=== PATIENT | male | born 1970 | race Hispanic/Latino ===

== ENCOUNTER 2019-01-21 12:14 | Emergency (ER) | payer OTHER ==
[2019-01-21 12:26] VITALS: TEMP 98
--- NOTE | 2019-01-21 12:35 | ED PDOC ---
HPI: SOB/CHF/COPD Time Seen by Provider: 01/21/19 12:27 Chief Complaint (Nursing): Shortness Of Breath Chief Complaint (Provider): SOB History Per: Patient History/Exam Limitations: no limitations Additional Complaint(s): Pt reports SOB X 2 weeks, worse after eating, has been taking Tums. Today was sitting at desk at work @ 10 AM when started to have SOB, palpitations and dizziness, tried to eat something but could not, symptoms constant. Denies chest pain. Past Medical History Reviewed: Nursing Documentation, Vital Signs Vital Signs: Last Vital Signs Temp 98 F 01/21/19 12:23 Pulse 107 H 01/21/19 12:23 Resp 22 01/21/19 12:23 BP 171/94 H 01/21/19 12:23 Pulse Ox 98 01/21/19 12:23 - Medical History PMH: No Chronic Diseases - Surgical History Other surgeries: Noncontributory - Family History Family History: States: Unknown Family Hx - Living Arrangements Living Arrangements: With Family - Social History Current smoker - smoking cessation education provided: Yes (Vape) Alcohol: Occasional Drugs: Denies - Home Medications Home Medications: Ambulatory Orders Medication Instructions Recorded Famotidine [Pepcid] 20 mg PO BID #20 tab 01/21/19 - Allergies Allergies/Adverse Reactions: Allergies Allergy/AdvReac Type Severity Reaction Status Date / Time No Known Allergies Allergy Verified 01/21/19 12:23 Review of Systems Constitutional: Negative for: Fever, Chills Cardiovascular: Positive for: Palpitations, Light Headedness. Negative for: Chest Pain Respiratory: Positive for: Shortness of Breath. Negative for: Cough Gastrointestinal: Negative for: Abdominal Pain Musculoskeletal: Negative for: Neck Pain, Back Pain Skin: Negative for: Rash, Lesions Neurological: Positive for: Dizziness. Negative for: Weakness, Numbness, Incoordination, Change in Speech, Confusion, Seizures, Altered Mental Status, Headache Physical Exam - Reviewed Nursing Documentation Reviewed: Yes Vital Signs Reviewed: Yes - Physical Exam Appears: Positive for: Well, No Acute Distress (Speaking full sentences) Head Exam: Positive for: ATRAUMATIC, NORMAL INSPECTION Skin: Positive for: Normal Color, Warm, Dry Eye Exam: Positive for: Normal appearance, EOMI, PERRL Cardiovascular/Chest: Positive for: Regular Rate, Rhythm Respiratory: Positive for: Normal Breath Sounds. Negative for: Rales, Rhonchi, Wheezing Back: Positive for: Normal Inspection Extremity: Positive for: Normal ROM. Negative for: Tenderness, Calf Tenderness, Swelling Neurological/Psych: Positive for: Awake, Alert, Oriented, driver supervisor II-XII - Laboratory Results Result Diagrams: 01/21/19 12:45 01/21/19 12:45 - ECG O2 Sat by Pulse Oximetry: 98 Medical Decision Making Medical Decision Makin yo male with SOB and palpitations. - labs - EKG - CXR Accession No. : [id number] Patient Name / ID : TIFFANI BRANDT / [id number] Exam Date : 01/21/2019 12:29:21 ( Approved ) Study Comment : Sex / Age : M / 48Y Creator : Carloz Peña MD Dictator : Carloz Peña MD Grocery Clerk Checking : Potato Chip Fryer : Carloz Peña MD Approver2 : Report Date : 01/21/2019 15:08:57 My Comment : Date of service: 01/21/2019 HISTORY: SOB COMPARISON: No prior. FINDINGS: LUNGS: No active pulmonary disease. PLEURA: No significant pleural effusion identified, no pneumothorax apparent. CARDIOVASCULAR: No atherosclerotic calcification present Normal. OSSEOUS STRUCTURES: No significant abnormalities. VISUALIZED UPPER ABDOMEN: Normal. OTHER FINDINGS: None. IMPRESSION: No active disease. Accession No. : [id number] Patient Name / ID : TIFFANI BRANDT / [id number] Exam Date : 01/21/2019 15:16:29 ( Approved ) Study Comment : Sex / Age : M / 48Y Creator : Sandip Alfaro MD Dictator : Sandip Alfaro MD Grocery Clerk Checking : Potato Chip Fryer : Sandip Alfaro MD Approver2 : Report Date : 01/21/2019 15:33:00 My Comment : Date of service: 01/21/2019 PROCEDURE: CT Chest with contrast (Pulmonary Angiogram) HISTORY: Palpitations COMPARISON: None available. TECHNIQUE: Axial computed tomography images were obtained of the chest in the pulmonary arterial phase of enhancement. Coronal and sagittal reformatted images were created and reviewed. Intravenous contrast dose: Visipaque 320, 85 cc Radiation dose: Total exam DLP = 395.78 mGy-cm. This CT exam was performed using one or more of the following dose reduction techniques: Automated exposure control, adjustment of the mA and/or kV according to patient size, and/or use of iterative reconstruction technique. FINDINGS: PULMONARY ARTERIES: No CT evidence of pulmonary embolism. AORTA: No acute findings. No thoracic aortic aneurysm. No aortic atherosclerotic calcification or mural plaque present. LUNGS: Unremarkable. No nodule, mass or pulmonary consolidation. PLEURAL SPACES: Unremarkable. No effusion or pneumothorax. HEART: Cardiac size appears upper limits of normal. No significant pericardial effusion. LYMPH NODES: No thickened lymphadenopathy. BONES, CHEST WALL: Unremarkable. No fracture or destructive lesion OTHER FINDINGS: Unremarkable. IMPRESSION: Unremarkable CT pulmonary angiogram. No pulmonary embolus. No acute consolidation, pleural or pericardial effusion or significant lymphadenopathy appreciated. 16:00 Results discussed with patient in detail, questions answered. Discussed importance of follow-up with [facility] and possible referral to Cardiology. Disposition - Clinical Impression Clinical Impression: Palpitations, Dyspnea, PVC (premature ventricular contraction) - Disposition Disposition: Routine/Home Disposition Time: 16:28 Condition: STABLE Additional Instructions: FOLLOW-UP WITH [facility] WITHIN 2 DAYS FOR REEVALUATION. Prescriptions: Famotidine [Pepcid] 20 mg PO BID #20 tab Instructions: Ventricular Premature Beats, Palpitations, Shortness of Breath (Dyspnea) Forms: [employer] ([place])
[2019-01-21] MEDS ORDERED: Sodium Chloride 0.9% 1,000 ML IV STA (12:37)
[2019-01-21 12:56] LABS: BASO # 0.1 K/uL (0.0-0.2); EOS # 0.1 K/uL (0.0-0.7); EOS % 1.2 % (0.0-4.0); HEMOGLOBIN 13.7 g/dL (12.0-18.0); LYMPH # 1.6 K/uL (1.0-4.3); MEAN CELL VOLUME 94.8 fl (80.0-94.0); MEAN CORPUSCULAR HEMOGLOBIN 31.9 pg (27.0-31.0); MEAN CORPUSCULAR HGB CONC 33.6 g/dL (33.0-37.0); MEAN PLATELET VOLUME 9.2 fl (7.2-11.7); MONO # 0.5 K/uL (0.0-0.8); MONO % 8.9 % (0.0-10.0); NEUT # 3.1 K/uL (1.8-7.0); NEUT % 58.9 % (50.0-75.0); RBC 4.29 Mil/uL (4.40-5.90); WHITE BLOOD COUNT 5.2 K/uL (4.8-10.8)
[2019-01-21 13:02] LABS: PROTHROMBIN TIME 11.6 Seconds (9.8-13.1)
[2019-01-21 13:08] LABS: D DIMER < 200 ng/mlDDU (0-230)
[2019-01-21 13:14] LABS: ALB/GLOB RATIO 1.3 (1.0-2.1); ALBUMIN 4.2 g/dL (3.5-5.0); ALT/SGPT 27 U/L (21-72); AST/SGOT 24 U/L (17-59); BLOOD UREA NITROGEN 16 mg/dl (9-20); CALCIUM 9.8 mg/dL (8.4-10.2); GFR NON-AFRICAN AMERICAN > 60
[2019-01-21 13:51] LABS: URINE BACTERIA RARE (<OCC); URINE BILIRUBIN NEGATIVE (NEGATIVE); URINE BLOOD NEGATIVE (NEGATIVE); URINE CLARITY CLEAR (Clear); URINE COLOR STRAW (YELLOW); URINE GLUCOSE (UA) NEG (NEGATIVE); URINE LEUKOCYTE ESTERASE NEG Leu/uL (Negative); URINE PROTEIN NEGATIVE (NEGATIVE); URINE UROBILINOGEN 0.2-1.0 mg/dL (0.2-1.0)
[2019-01-21] MEDS ORDERED: Iodixanol 320 MG/ML 100 ML BOTTLE IV ONE (15:05)
[2019-01-21] MEDS ORDERED: Sodium Chloride 0.9% 50 ML IV ONE (15:05)
--- NOTE | 2019-01-21 15:12 | RAD ---
Date of service: 01/21/2019 HISTORY: SOB COMPARISON: No prior. FINDINGS: LUNGS: No active pulmonary disease. PLEURA: No significant pleural effusion identified, no pneumothorax apparent. CARDIOVASCULAR: No atherosclerotic calcification present Normal. OSSEOUS STRUCTURES: No significant abnormalities. VISUALIZED UPPER ABDOMEN: Normal. OTHER FINDINGS: None. IMPRESSION: No active disease.
--- NOTE | 2019-01-21 15:36 | CT ---
Date of service: 01/21/2019 PROCEDURE: CT Chest with contrast (Pulmonary Angiogram) HISTORY: Palpitations COMPARISON: None available. TECHNIQUE: Axial computed tomography images were obtained of the chest in the pulmonary arterial phase of enhancement. Coronal and sagittal reformatted images were created and reviewed. Intravenous contrast dose: Visipaque 320, 85 cc Radiation dose: Total exam DLP = 395.78 mGy-cm. This CT exam was performed using one or more of the following dose reduction techniques: Automated exposure control, adjustment of the mA and/or kV according to patient size, and/or use of iterative reconstruction technique. FINDINGS: PULMONARY ARTERIES: No CT evidence of pulmonary embolism. AORTA: No acute findings. No thoracic aortic aneurysm. No aortic atherosclerotic calcification or mural plaque present. LUNGS: Unremarkable. No nodule, mass or pulmonary consolidation. PLEURAL SPACES: Unremarkable. No effusion or pneumothorax. HEART: Cardiac size appears upper limits of normal. No significant pericardial effusion. LYMPH NODES: No thickened lymphadenopathy. BONES, CHEST WALL: Unremarkable. No fracture or destructive lesion OTHER FINDINGS: Unremarkable. IMPRESSION: Unremarkable CT pulmonary angiogram. No pulmonary embolus. No acute consolidation, pleural or pericardial effusion or significant lymphadenopathy appreciated.
[2019-01-21 16:20] VITALS: BP 142/76; RESP 18
[2019-01-21 16:46] VITALS: PULSE 66
--- NOTE | 2019-01-21 19:17 | CARD ---
APPROVED REPORT Date of service: 01/21/2019 EKG Measurement Heart [id number] <Conclusion> Sinus tachycardia with frequent premature ventricular complexes Possible Left atrial enlargement Borderline ECG
[2019-01-22 07:55] VITALS: O2SAT 98
== END 2019-01-21 16:28 | disposition home or self-care (01) ==
LOC: H.ER 12:14
DX: R00.2 Palpitations (principal); I49.3 Ventricular premature depolarization; R06.00 Dyspnea, unspecified; F17.290 Nicotine dependence, other tobacco product, uncomplicated
CPT/HCPCS: 71045; 71275; 80053; 81003; 83735; 84100; 84443; 84484; 85025; 85378; 85610; 85730; 93005; 99284; J7030; Q9967